=== PATIENT | female | born 1985 | race Caucasian/White ===

== ENCOUNTER 2022-02-09 10:14 | Outpatient (CLI) | payer OTHER, SELFPAY ==
[2022-02-09 21:42] LABS: Iron* 130 ug/dL (37-170)
[2022-02-09 21:43] LABS: Cholesterol* 200 mg/dL (90-199); Triglycerides* 87 mg/dL (40-149)
[2022-02-09 21:44] LABS: HDL Cholesterol* 43 mg/dL (>=50); LDL Cholesterol Calculated 140 mg/dL (<100)
[2022-02-09 21:57] LABS: Percent Iron Saturation 41 % (20-50); Total Iron Binding Capacity 313 ug/dL (265-497)
[2022-02-09 22:56] LABS: Free T4 Free Thyroxine* 1.09 ng/dL (0.70-1.85)
== END 2022-02-09 10:15 | disposition home or self-care (01) ==
PROVIDERS: PCP Family Medicine; Visit Provider Family Medicine
DX: Z00.00 Encounter for general adult medical examination without abnormal findings (principal); R55 Syncope and collapse
CPT/HCPCS: 80061; 83540; 83550; 84439; 84443

== ENCOUNTER 2022-05-27 08:47 | Outpatient (CLI) | payer OTHER, SELFPAY ==
[2022-05-27 15:28] LABS: Albumin* 4.6 g/dL (3.3-5.0)
[2022-05-27 15:29] LABS: Chloride* 105 mmol/L (96-114); Potassium* 4.3 mmol/L (3.6-5.1); Sodium* 141 mmol/L (135-149)
[2022-05-27 15:30] LABS: Cholesterol* 212 mg/dL (90-199)
[2022-05-27 15:31] LABS: Alkaline Phosphatase* 54 U/L (40-150); Aspartate Amino Transferase* 24 U/L (12-35); Bilirubin Total* 0.5 mg/dL (0.1-1.5); Blood Urea Nitrogen* 12 mg/dL (5-24); Carbon Dioxide* 29 mmol/L (20-32); Creatinine* 0.6 mg/dL (0.5-1.5); Estimated Glomerular Filt Rate 118 ml/min; Glucose* 88 mg/dL (60-115); Total Protein* 7.2 g/dL (6.0-8.3); Triglycerides* 75 mg/dL (40-149)
[2022-05-27 15:32] LABS: Alanine Aminotransferase* 26 U/L (4-35); HDL Cholesterol* 46 mg/dL (>=50); LDL Cholesterol Calculated 151 mg/dL (<100)
[2022-05-27 15:54] LABS: Vitamin D 25 Hydroxy* 35 ng/mL (30-80)
[2022-05-27 16:24] LABS: Vitamin B12* 558 pg/mL (243-894)
[2022-05-28 19:21] LABS: Immunoglobulin A 241 mg/dL (68-408)
[2022-05-29 10:48] LABS: Tissue Transglutaminase IgA <2 U/mL (0-3)
[2022-05-29 19:38] LABS: Copper, Serum/Plasma 102.9 ug/dL (80.0-155.0)
== END 2022-05-27 08:48 | disposition home or self-care (01) ==
PROVIDERS: PCP Family Medicine; Visit Provider Family Medicine
DX: Z01.419 Encounter for gynecological examination (general) (routine) without abnormal findings (principal); E03.8 Other specified hypothyroidism; K90.0 Celiac disease; N64.4 Mastodynia; R53.83 Other fatigue
CPT/HCPCS: 80053; 80061; 82306; 82525; 82607; 82784; 84443; 84590; 86364

== ENCOUNTER 2022-06-15 12:43 | Outpatient (CLI) | payer OTHER, SELFPAY ==
[2022-06-15 14:00] VITALS: BP 117/73; PULSE 102
--- NOTE | 2022-06-15 17:15 | W.PM.STED ---
Stress Test Note Date Date Seen: 06/15/22 Date of test: 06/15/22 Providers Primary care provider: Zoila Albrecht Stress test physician: Landry Pacheco Stress Test Note Stress test ordered: Stress Echo Indication for test: Chest pain Results discussion: Patient is a very nice 36-year-old female presents for the above test after discussion risks benefits and side effects and reviewing the cardiac stress test medical history form she would like to proceed. Pretest EKG shows normal sinus rhythm, there is no acute ST wave changes, her rhythm is sinus, with a rate of 77, her blood pressure is 117/74 Noble protocol is followed for duration of 10 minutes 12 seconds achieved a metabolic equivalent of 11.9 Mets, her maximum heart rate was 172, which is 110% of the target. Test is stopped his of fulfillment of protocol she had no chest pain no shortness of breath or any other anginal symptoms. Review of the tracings post test showed no dysrhythmias, there is no ST wave changes suggestive of ischemia, she recovered normally. Impression: Negative electrographic portion of stress echo Follow up suggested: Await echo images these will be read by Cardiology, patient left this testing facility in excellent condition.
== END 2022-06-15 12:44 | disposition home or self-care (01) ==
PROVIDERS: PCP Family Medicine; Visit Provider Family Medicine
DX: R07.9 Chest pain, unspecified (principal)
CPT/HCPCS: 93016; 93325; 93351

== ENCOUNTER 2022-08-26 08:19 | Outpatient (CLI) | payer OTHER, SELFPAY | END 2022-08-26 08:20 | disposition home or self-care (01) | LOC: NFLDREF 08-27 15:01 | PROVIDERS: PCP Family Medicine; Referring Provider Family Medicine; Visit Provider Family Medicine | DX: E03.8 Other specified hypothyroidism (principal); E78.00 Pure hypercholesterolemia, unspecified; R53.83 Other fatigue | CPT/HCPCS: 80061; 84443 ==

== ENCOUNTER 2022-11-25 09:47 | Outpatient (CLI) | payer OTHER, SELFPAY | END 2022-11-25 09:48 | disposition home or self-care (01) | PROVIDERS: PCP Family Medicine; Visit Provider Family Medicine | DX: E03.8 Other specified hypothyroidism (principal); E66.01 Morbid (severe) obesity due to excess calories; G47.19 Other hypersomnia; K29.70 Gastritis, unspecified, without bleeding; K90.0 Celiac disease; R55 Syncope and collapse | CPT/HCPCS: 80053; 82306; 82607; 83520; 84439; 84443; 84481 ==

== ENCOUNTER 2024-02-01 14:34 | Outpatient (CLI) | payer OTHER, SELFPAY ==
--- OUTSIDE RECORDS SUMMARY | 2024-02-01 14:36 | XMS_ITS | Clinical Summary ---
Author Organization [facility] Address [place], [place] [address] Care Team Providers Care Fisher Lampara Net Name Role Phone Clinic, No Pcp Or Primary Care Provider Unavaila ble Allergies No known active allergies Medications Medication Sig Dispensed Refills Start Date End Date Status multivitamin (MVI) tablet Take 1 tablet by mouth once daily. Women's one a day 0 03/19/2015 Active Active Problems Problem Noted Date Diagnosed Date Migraine 01/15/2013 Celiac disease Environmental allergies Resolved Problems Problem Noted Date Diagnosed Date Resolved Date Iron deficiency anemia 01/15/201301/16 Immunizations Name Administration Dates Next Due DTaP 04/30/1996, 6,01/23/1990,03/05/1985, 1984,1984 Hepatitis B (Peds) 10/30/1996,05/30/1996, 996 Human Papilloma Virus Vaccine 06/07/2007, 007 Inactivated Polio Vaccine 01/23/1990,03/06/1986, 1984,1984 Influenza, IIV3 (Age >=3 years) 02/29/2012,04/07 Influenza, IIV4 (=>6mos) MDV 04/12/2017 MMR 01/23/1990,12/28/1985 Td (Age >=7 Years) 11/26/2004,04/30/1996 Tdap 02/04/2012,02/04/2012,11/26/2004 Tuberculin (PPD) 05/06/2003 Family History Medical History Relation Name Comments Good Health Father Thyroid Disease Maternal Grandmother Good Health Mother Thyroid Disease Mother Diabetes Sister Type I Relation Name Status Comments Father Maternal Grandmother Mother Sister Social History Tobacco Use Types Packs/Day Years Used Date Smoking Tobacco: Never Smokeless Tobacco: Never Tobacco Cessation:Counseling Given: Yes Alcohol Use Standard Drinks/Week Comments Yes 0 (1 standard drink = 0.6 oz pur e alcohol) Maybe a glass a week PHQ-2 Answer Date Recorded PHQ-2 TOTAL SCORE 0 06/09/2021 Social Connections Answer Date Recorded Frequency of Communication with Friends and Fami ly Not on file 06/20/2021 Financial Resource Strain Answer Date R ecorded Difficulty of Paying Living Expenses Not on file 06/20/2021 Difficulty of Paying Living Expenses Not on file 06/20/2021 Sex and Gender Information Value Date Recorded Sex Assigned at Not on file Gender Identity Not on file Sexual Orientation Not on file Obstetrics History Para Term AB IAB SAB Ectopic Multiple Livin g Live Births 5 2 2 3 3 2 2 Date Outcome GA Total Labor Labor/2nd/3rd Weight Sex Type Anes PTL Rosalina A1 A5 Name Clin 2002 SAB 02/02 Term F VAGINA L BRENDA Epidur al N Livin g Scarle tt Complications:None 07/02 Term M VAGINA L BRENDA Epidur al N Livin g Greyso n Complications:None Last Filed Vital Signs Vital Sign Reading Time Taken Comments Blood Pressure 90/60 06/25/2021 8:42 AM MEAT SCRUBBER Pulse 93 06/25/2021 8:42 AM MEAT SCRUBBER Temperature 37.2 ??C (98.9 ??F) 06/25/2021 8:42 AM CS T Respiratory Rate 16 04/28/2017 12:31 PM MEAT SCRUBBER Oxygen Saturation 100% 06/25/2021 8:42 AM MEAT SCRUBBER Inhaled Oxygen Concentration - - Weight 74.4 kg (164 lb) 06/25/2021 8:42 AM MEAT SCRUBBER Height 162.6 cm (5' 4) 06/25/2021 8:42 AM MEAT SCRUBBER Body Mass Index 28.15 06/25/2021 8:42 AM MEAT SCRUBBER Plan of Treatment Health Maintenance Due Date Last Done Comments HIV for age 15-65 08/31/1999 Hepatitis C screening for age 18-79 2002 Pap test for age 21-65 10/13/2019 7 (Completed outside of [facility]), 03/13/2013 (Completed outside of [facility]) Tetanus booster 02/03/2022 02/04/2012, 01/18, 11/26/2004, Additional history exists Depression screening for age 12+ 06/09/2022 06/09/2021, 06/09/2021, 01/22/2016, Additional history exists BMI (ht and wt on same day) for age 18+ 06/25/2022 06/25/2021, 06/09/2021, 04/28/2017, Additional history exists COVID-19 vaccine series ( season) 2023 Influenza for age 9-49 02/19/2024 7, 02/29/2012, 04/07/2007 Tdap Completed 02/04/2012, 01/18, 11/26/2004 Pneumococcal series for age 6-64 Aged Out No longer eligible based on patient's age to complete this topic Care Teams Fisher Lampara Net Relationship Specialty Start Date End Date Clinic, No Pcp Or . PCP - General 06/09/21
== END 2024-02-01 14:35 | disposition home or self-care (01) ==
PROVIDERS: PCP Physician Assistant Medical; Visit Provider Physician Assistant Medical
DX: Z00.00 Encounter for general adult medical examination without abnormal findings (principal); E03.8 Other specified hypothyroidism; K90.0 Celiac disease
CPT/HCPCS: 80053; 82306; 82607; 82728; 84443

== ENCOUNTER 2024-02-29 08:52 | Outpatient (CLI) | payer OTHER, SELFPAY ==
--- OUTSIDE RECORDS SUMMARY | 2024-02-29 08:55 | XMS_ITS | Clinical Summary ---
Author Organization [facility] Address [place], [place] [address] Care Team Providers Care Classified Advertising Manager Name Role Phone Clinic, No Pcp Or [...] Comments Blood Pressure 90/60 06/25/2021 8:42 AM DIE FINISHER Pulse 93 06/25/2021 8:42 AM DIE FINISHER Temperature 37.2 ??C (98.9 ??F) 06/25/2021 8:42 AM CS T Respiratory Rate 16 04/28/2017 12:31 PM DIE FINISHER Oxygen Saturation 100% 06/25/2021 8:42 AM DIE FINISHER Inhaled Oxygen Concentration - - Weight 74.4 kg (164 lb) 06/25/2021 8:42 AM DIE FINISHER Height 162.6 cm (5' 4) 06/25/2021 8:42 AM DIE FINISHER Body Mass Index 28.15 06/25/2021 8:42 AM DIE FINISHER Plan of Treatment Health Maintenance Due Date [...] history exists COVID-19 vaccine series ( season) 2024 Influenza for age 9-49 02/19/2024 7, 02/29/2012, 04/07/2007 Tdap Completed 02/04/2012, 01/18, 11/26/2004 Pneumococcal series for age 6-64 Aged Out No longer eligible based on patient's age to complete this topic Care Teams Classified Advertising Manager Relationship Specialty Start Date End Date Clinic, No Pcp Or . PCP - General 06/09/21
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
--- NOTE | 2024-02-29 09:30 | CRLHL7_ITS ---
For Patients: As a result of the Century Cures Act, medical imaging exams and procedure reports are released immediately into your electronic medical record. You may view this report before your referring provider. If you have questions, please contact your health care provider. INDICATION: pelvic pain rt side pain COMPARISON: none TECHNIQUE: 2D jade scale and color Doppler images were acquired of the pelvis using a transabdominal and transvaginal approach. FINDINGS: Sonographic images demonstrate a normal size and smooth outer contour of the uterus. Uterus measures 10.9 cm in length by 4.3 cm in AP diameter by 5.0 cm in transverse dimension. The myometrium has a normal uniform echotexture. The endometrial lining appears normal and measures 7 mm in composite thickness. The right ovary measures 4.0 x 2.0 x 2.7 cm in size and the left ovary measures 3.9 x 1.5 x 1.6 cm. The ovaries demonstrate normal arterial and venous blood flow on color Doppler analysis. There are no suspicious fluid collections within the cul-de-sac. Simple anechoic right ovarian cyst measures 1.8 x 1.5 x 1.8 cm. IMPRESSION: Simple right ovarian cyst measures 1.8 cm. No evidence of ovarian torsion, adnexal mass or excess pelvic free fluid. Dictated by Huan Lopez MD @ 02/29/2024 11:47:30 AM (Electronically Signed)
== END 2024-02-29 08:53 | disposition home or self-care (01) ==
LOC: US 08:53
PROVIDERS: PCP Physician Assistant Medical; Visit Provider Physician Assistant Medical
DX: R10.2 Pelvic and perineal pain (principal); N83.201 Unspecified ovarian cyst, right side
CPT/HCPCS: 76830; 76856